=== PATIENT | male | born 1955 | race American Indian/Alaskan Native ===

== ENCOUNTER 2018-02-13 14:54 | Outpatient (CLI) | payer BC ==
--- NOTE | 2018-02-13 15:32 | XRay Report ---
LEFT ELBOW RADIOGRAPHS INDICATION: Left elbow pain. COMPARISON: None similar at this institution. FINDINGS: AP, lateral and oblique left elbow radiographs demonstrate intact articulation and radial head. No abnormal fat pad sign. Small olecranon spur incidentally noted. CONCLUSION: No acute bony abnormality, as described. Please correlate for exact location of the pain. Thank you for the opportunity to participate in this patient's care.
== END 2018-02-13 14:55 | disposition home or self-care (01) ==
LOC: SPVIMAG 14:54
PROVIDERS: ATTEND Orthopaedic Surgery
DX: M25.522 Pain in left elbow (principal)